=== PATIENT | female | born 1985 | race American Indian/Alaskan Native ===

== ENCOUNTER 2018-11-30 22:36 | Emergency (ER) | payer MEDICAID, OTHER ==
[2018-12-01 00:05] LABS: Bilirubin,Urine NEG (Negative); Blood,Urine MOD (Negative); Color,Urine Straw (Yellow); Mucus,Urine FEW /HPF; Protein,Urine <15 mg/dL mg/dL (Negative); Urobilinogen,Urine < 2.0 mg/dL (<2.0)
[2018-12-01 00:29] LABS: Basophils # (Auto) 0.1 K/mm3 (0.0-0.1); Basophils % (Auto) 1.6 % (0.0-1.8); Eosinophils # (Auto) 0.1 K/mm3 (0.0-0.4); Eosinophils % (Auto) 1.2 % (0.0-4.3); Hematocrit 31.5 % (30.3-42.9); Hemoglobin 10.2 gm/dl (10.1-14.3); Lymphocytes # (Auto) 2.6 K/mm3 (1.2-5.4); Lymphocytes % (Auto) 32.1 % (13.4-35.0); Mean Corpuscular HGB Conc 33 % (30-34); Mean Corpuscular Volume 75 fl (79-97); Monocytes # (Auto) 0.6 K/mm3 (0.0-0.8); Monocytes % (Auto) 7.3 % (0.0-7.3); Platelet Count 320 K/mm3 (140-440); Red Blood Count 4.21 M/mm3 (3.65-5.03); Red Cell Distribution Width 18.5 % (13.2-15.2)
[2018-12-01 01:27] VITALS: BP 159/100
--- NOTE | 2018-12-01 01:29 | Emergency Department Report ---
ED HPI - General Chief complaint: Vaginal Bleeding Stated complaint: PREG 11 WKS/ABD PAIN/VAG BLEEDING Source: patient Mode of arrival: Ambulatory Limitations: No Limitations - History of Present Illness Initial comments: This is a 32-year-old female who presents with abdominal cramping and vaginal bleeding started earlier yesterday. Patient reports changes with white sputum and is dark. He reports cramping is intermittent and sharp at times. Her last menstrual period was 08/30/2018, A2, abortions. Patient states she had a confirmed with [facility] in [place]. He has not been able to follow up with the [facility] due to insurance. She denies vaginal discharge, low back pain, frequency, urgency, or dysuria. MD Complaint: abdominal pain, vaginal bleeding Onset/Timin -: days(s) Location: abdomen Radiation: none Severity: mild Severity scale (0 -10): 5 Quality: cramping Consistency: intermittent Improves with: none Worsens with: none Associated symptoms: vaginal bleeding. denies: nausea/vomiting, vaginal discharge, abdominal pain, dysuria, headache, vision changes, malaise, dysparuenia, rash, seizure, shortness of breath, syncope, weakness Vaginal bleeding: light :: Yes Number of weeks : 11 OB History - Current : no complications OB History - Previous Pregnancies: no complications Last menstrual period: 08/30/19 Pre-kinga care: none - Related Data : 6 Para: 3 Ab: 2 Allergies Allergy/AdvReac Type Severity Reaction Status Date / Time No Known Allergies Allergy Unverified 11/30/18 23:14 ED Review of Systems ROS: Stated complaint: PREG 11 WKS/ABD PAIN/VAG BLEEDING Other details as noted in HPI Constitutional: denies: chills, fever Respiratory: denies: cough, shortness of breath, wheezing Cardiovascular: denies: chest pain, palpitations Gastrointestinal: denies: abdominal pain (lower abdominal cramping), nausea, diarrhea Genitourinary: other (the vaginal bleeding during ). denies: urgency, dysuria, discharge Musculoskeletal: denies: back pain, joint swelling, arthralgia Neurological: denies: headache, weakness, paresthesias Psychiatric: denies: anxiety, depression ED Past Medical Hx - Social History Smoking Status: Former Smoker Substance Use Type: None ED Physical Exam - General Limitations: No Limitations General appearance: alert, in no apparent distress - Respiratory Respiratory exam: Present: normal lung sounds bilaterally. Absent: respiratory distress - Cardiovascular Cardiovascular Exam: Present: regular rate, normal rhythm. Absent: systolic murmur, diastolic murmur, rubs, gallop - GI/Abdominal GI/Abdominal exam: Present: soft, normal bowel sounds. Absent: distended, tenderness, guarding, rebound, rigid, organomegaly, mass - Back Exam Back exam: Absent: CVA tenderness (R), CVA tenderness (L) - Neurological Exam Neurological exam: Present: alert, oriented X3 - Psychiatric Psychiatric exam: Present: normal affect, normal mood - Skin Skin exam: Present: warm, dry, intact, normal color. Absent: rash ED Course Vital Signs 11/30/18 12/01/18 23:21 01:22 Temperature 98.9 F Pulse Rate 71 Respiratory 20 16 Rate Blood Pressure 159/100 Blood Pressure 159/110 [Left] O2 Sat by Pulse 100 100 Oximetry ED Medical Decision Making - Lab Data Result diagrams: 11/30/18 23:41 - Radiology Data Radiology results: report reviewed EXAM: TRANSVAGINAL US OBSTETRIC HISTORY: vag bleeding TECHNIQUE: Transvaginal imaging was obtained the pelvis. FINDINGS: The uterus is anteverted measuring 12.7 cm x 8.3 cm x 9.5 cm. Within the uterus is a well-formed gestational sac which contains a yolk sac and pole. The pole corresponds to a of 12 weeks 4 days. The heart rate is 179 BPM. There is a very small subchorionic hemorrhage noted. Free fluid is not seen. Both ovaries are normal size contour blood flow and echotexture. The right ovary measures 2.8 cm x 1.7 cm x 2.6 cm. The left ovary measures 2.6 cm x 1.6 cm x 2.4 cm. IMPRESSION: Single viable IUP, 12 weeks 4 days. The heart is 179 BPM. Very small subchorionic hemorrhage. Normal-appearing ovaries. No evidence of free fluid the pelvis. - Medical Decision Making This is a 32 y.o. female presents with vaginal bleeding during for one day. The patient is 11 weeks . She also reports some lower abdominal cramping. Patient was examined by me. Vitals are normal and patient is in no acute distress. Obtained a urinalysis, CBC, hCG quant, and OB ultrasound. Quant [id number], H&H normal, moderate blood and urinalysis. All other labs unremarkable. Single viable IUP, 12 weeks 4 days. The heart is 179 BPM. Very small subchorionic hemorrhage. Normal-appearing ovaries. No evidence of free fluid the pelvis. Patient instructed to have repeat hCG quant in 48 hours with [facility] or in ER. Instructed to remain on bed rest. Patient discharged home in stable condition. Critical care attestation.: If time is entered above; I have spent that time in minutes in the direct care of this critically ill patient, excluding procedure time. ED Disposition Clinical Impression: Vaginal bleeding affecting early , Abdominal cramping affecting , Threatened miscarriage Subchorionic hemorrhage in first trimester Qualifiers: Fetus number: single or unspecified fetus Qualified Code(s): O41.8X10 - Other specified disorders of amniotic fluid and membranes, first trimester, not applicable or unspecified; O46.8X1 - Other antepartum hemorrhage, first trimester Disposition: TO HOME OR SELFCARE Is pt being admited?: No Does the pt Need Aspirin: No Condition: Stable Instructions: Threatened Miscarriage (ED) Additional Instructions: Have repeat hCG quant labs in 48 hours with [facility] or ER. Your hCG quantitative on this visit was [id number]. Remain on bed rest. Follow up with [facility] in 24-48 hours. Return to ER if increased vaginal bleeding, abdominal pain, and low back pain. Referrals: [facility] [Primary Care Provider] - 3-5 Days [facility] [Provider Group] - 3-5 Days [facility] [Provider Group] - 3-5 Days [facility] [Provider Group] - 3-5 Days Forms: Work/School Release Form(ED) Time of Disposition: 03:20
--- NOTE | 2018-12-01 02:56 | Ultrasound Report ---
FINAL REPORT EXAM: TRANSVAGINAL US OBSTETRIC HISTORY: vag bleeding TECHNIQUE: Transvaginal imaging was obtained the pelvis. FINDINGS: The uterus is anteverted measuring 12.7 cm x 8.3 cm x 9.5 cm. Within the uterus is a well-formed gest ational sac which contains a yolk sac and pole. The pole corresponds to a of 12 weeks 4 days. The heart rate is 179 BPM. There is a very small subchorionic hemorrhage noted. Free fluid is not seen. Both ovaries are normal size contour blood flow and echotexture. The right ovary measures 2.8 cm x 1.7 cm x 2.6 cm. The left ovary measures 2.6 cm x 1.6 cm x 2.4 cm. IMPRESSION: Single viable IUP, 12 weeks 4 days. The heart is 179 BPM. Very small subchorionic hemorrhage. Normal-appearing ovaries. No evidence of free fluid the pelvis.
--- NOTE | 2018-12-01 02:57 | Ultrasound Report ---
FINAL REPORT EXAM: OB US < 14 WKS SINGLE FETUS HISTORY: vag bleeding TECHNIQUE: Transvaginal imaging was obtained the pelvis. FINDINGS: The uterus is anteverted measuring 12.7 cm x 8.3 cm x 9.5 cm. Within the uterus is a well-formed gest ational sac which contains a yolk sac and pole. The pole corresponds to an IUP of 12 week s 4 days. The heart rate is 179 BPM. There is a very small subchorionic hemorrhage. Free fluid is not seen. Both ovaries are normal size contour blood flow and echotexture. The right ovary measures 2.8 cm x 1. 7 cm by 2.6 cm. The left ovary measures 2.6 cm x 1.6 cm x 2.4 cm. IMPRESSION: Single viable IUP, 12 weeks 4 days. The heart rate is 179 BPM. Very small subchorionic hemorrhage. Normal-appearing ovaries. No evidence of free fluid.
== END 2018-12-01 03:33 | disposition home or self-care (01) ==
LOC: ED 22:36
DX: O41.8X10 Other specified disorders of amniotic fluid and membranes, first trimester, not applicable or unspecified (principal); O46.8X1 Other antepartum hemorrhage, first trimester; O20.0 Threatened abortion; Z3A.12 12 weeks gestation of pregnancy
CPT/HCPCS: 36415; 76801; 76817; 81001; 84702; 85025; 86850; 86900; 86901